=== PATIENT | female | born 1985 | race Caucasian/White ===

== ENCOUNTER 2023-11-27 21:04 | Emergency (ER) | payer BC ==
[2023-11-27 21:19] VITALS: BP 134/93; O2SAT 100
--- NOTE | 2023-11-27 21:33 | ED Physician Documentation ---
PD HPI ABD PAIN - Stated complaint Stated Complaint: ABD PX - Chief complaint Chief Complaint: Abd Pain - History obtained from History obtained from: Patient - Additional information Additional information: 38-year-old female with no significant past medical history presents with approximately 24 hours of centralized periumbilical abdominal pain. Associated nausea, patient denies vomiting or changes in bowel habits. Pain is constant, nothing seems to make it better or worse. Took Tylenol earlier this morning without change in symptoms. Denies previous history of abdominal surgeries. Since pain has persisted for over 24 hours she decided to present for evaluation. No known sick contacts, no new or strange foods. Review of Systems Constitutional: denies: Fever, Chills Cardiac: denies: Chest pain / pressure, Palpitations, Calf pain Respiratory: denies: Dyspnea, Cough, Wheezing GI: reports: Abdominal Pain, Nausea. denies: Vomiting, Constipation, Diarrhea PD PAST MEDICAL HISTORY - Past Medical History Past Medical History: No - Past Surgical History Past Surgical History: No - Present Medications Home Medications: Ambulatory Orders Medication Instructions Recorded Confirmed Dicyclomine [Bentyl] 1 - 2 tab PO QID PRN #30 cap 11/27/23 Ondansetron Odt [Zofran] 4 mg TL Q6H PRN #30 tablet 11/27/23 - Allergies Allergies/Adverse Reactions: Allergies Allergy/AdvReac Type Severity Reaction Status Date / Time No Known Drug Allergies Allergy Verified 11/27/23 21:07 - Social History Does the pt smoke?: No Smoking Status: Never smoker Does the pt drink ETOH?: No Does the pt have substance abuse?: No - Immunizations Immunizations are current?: Yes - POLST Patient has POLST: No PD ED PE NORMAL - Vitals Vital signs reviewed: Yes - General General: Alert and oriented X 3, No acute distress, Well developed/nourished - Respiratory Respiratory: No respiratory distress - Abdomen Abdomen: Soft, Non distended, No organomegaly, Other (generalized periumbilical abdominal tenderness to deep palpation without rebound or guarding) - Derm Derm: Normal color, Warm and dry, No rash - Neuro Neuro: Alert and oriented X 3, 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, No motor deficit, Normal speech - Psych Psych: Normal mood, Normal affect Results - Vitals Vitals: Vital Signs - 24 hr 11/27/23 11/27/23 21:07 23:07 Temperature 36.5 C 36.5 C Heart Rate 88 88 Respiratory 16 16 Rate Blood Pressure 134/93 H 134/93 H O2 Saturation 100 100 Oxygen O2 Source Room air - Labs Labs: Laboratory Tests 11/27/23 11/27/23 11/27/23 21:39 21:39 22:20 WBC 7.4 RBC 4.42 Hgb 13.7 Hct 40.0 MCV 90.5 MCH 31.0 MCHC 34.3 RDW 11.8 L Plt Count 278 MPV 11.8 H Neut # (Auto) 5.8 Lymph # (Auto) 1.2 L [place] # (Auto) 0.3 Eos # (Auto) 0.0 Baso # (Auto) 0.1 Absolute Nucleated RBC 0.00 Nucleated RBC % 0.0 Sodium 137 Potassium 3.9 Chloride 104 Carbon Dioxide 25 Anion Gap 8.0 BUN 11 Creatinine 0.5 L Estimated GFR (MDRD) 138 Glucose 123 H Calcium 10.0 Total Bilirubin 0.8 AST 11 ALT 9 L Alkaline Phosphatase 35 L Total Protein 7.4 Albumin 4.8 Globulin 2.6 Albumin/Globulin Ratio 1.8 Lipase < 10 L Urine Color YELLOW Urine Clarity CLEAR Urine pH 7.5 Ur Specific [place] 1.020 Urine Protein NEGATIVE Urine Glucose (UA) NEGATIVE Urine Ketones NEGATIVE Urine Occult Blood NEGATIVE Urine Nitrite NEGATIVE Urine Bilirubin NEGATIVE Urine Urobilinogen 0.2 (NORMAL) Ur Leukocyte Esterase NEGATIVE Ur Microscopic Review NOT INDICATED Urine Culture Comments NOT INDICATED Urine HCG, Qual NEGATIVE PD Medical Decision Making - ED course Complexity details: reviewed results, re-evaluated patient, considered differential, d/w patient ED course: Well-appearing patient with 24 hours of periumbilical abdominal pain. Abdomen is soft, pain located just around the umbilicus without rebound or guarding. Patient did drive herself to work today. Lab and nonsedating pain medications ordered. Laboratory work is reviewed, no significant abnormalities identified. No leukocytosis, normal liver enzymes, normal kidney function, normal electrolytes. Patient reports moderate improvement in pain with administration of Toradol. Patient counseled on laboratory work results, shared decision making between myself and patient at bedside. I offered abdominal imaging if patient was concern for underlying appendicitis or other possible surgical abnormality. Patient stated that she would like to defer imaging at this time. Recommended 24-hour return visit to the emergency department if she is still experiencing pains. Nausea medication, antispasmodic medications sent to pharmacy of choice. Departure - Departure Disposition: 01 Home, Self Care Clinical Impression: Abdominal pain Condition: Stable Instructions: ED Abdominal Pain Female Non-Specific Abdominal Pain Prescriptions: Dicyclomine [Bentyl] 1 - 2 tab PO QID PRN #30 cap PRN Reason: Abdominal Pain Ondansetron Odt [Zofran] 4 mg TL Q6H PRN #30 tablet PRN Reason: Nausea / Vomiting Comments: Your laboratory work here today is reassuring. You do not have an elevation in your white blood cell count, your liver enzymes are normal, and your kidney function is within normal limits. I am uncertain of the cause of your abdominal pain at this time based on laboratory work. I do recommend that if you are continuing to have abdominal pains by this time tomorrow you should come back to the emergency department for repeat evaluation and possible CT imaging. In the meantime and antispasmodic medication and nausea medications have been sent to the [facility] in [place]. You may also take Tylenol and ibuprofen at home as needed for discomfort. Forms: PCP List Discharge Date/Time: 11/27/23 23:08
[2023-11-27 21:45] LABS: BASOPHILS # (AUTO) 0.1 10^3/uL (0.0-0.1); BASOPHILS % (AUTO) 0.7 %; EOSINOPHILS % (AUTO) 0.1 %; HGB - HEMOGLOBIN 13.7 g/dL (12.0-16.0); LYMPHOCYTES # (AUTO) 1.2 10^3/uL (1.5-3.5); LYMPHOCYTES % (AUTO) 16.5 %; MEAN CORPUSCULAR HGB CONC 34.3 g/dL (32.0-36.0); MEAN CORPUSCULAR VOLUME 90.5 fL (81.0-99.0); MEAN PLATELET VOLUME 11.8 fL (7.9-10.8); MONOCYTES # (AUTO) 0.3 10^3/uL (0.0-1.0); MONOCYTES % (AUTO) 4.5 %; NEUTROPHILS # (AUTO) 5.8 10^3/uL (1.5-6.6); NEUTROPHILS % (AUTO) 77.9 %; PLT - PLATELET COUNT 278 10^3/uL (130-450); RED BLOOD COUNT 4.42 10^6/uL (4.20-5.40); RED CELL DISTRIBUTION WIDTH 11.8 % (12.0-15.0); WHITE BLOOD COUNT 7.4 x10^3/uL (4.8-10.8)
[2023-11-27] MEDS: KETOROLAC 15 MG/ML VIAL IVP STA (21:51)
[2023-11-27] MEDS: SODIUM CHLORIDE 0.9% 1,000 ML IV STA (21:51)
[2023-11-27] MEDS: ONDANSETRON 4 MG/2 ML VIAL IVP STA (21:52)
[2023-11-27 22:02] LABS: ALBUMIN 4.8 g/dL (3.2-5.5); ALBUMIN/GLOBULIN RATIO 1.8 (1.0-2.2); ALKALINE PHOSPHATASE 35 IU/L (42-121); ALT ALANINE AMINOTRANSFERASE 9 IU/L (10-60); AST ASPARTATE AMINOTRANSFERASE 11 IU/L (10-42); BILIRUBIN,TOTAL 0.8 mg/dL (0.2-1.0); BUN - BLOOD UREA NITROGEN 11 mg/dL (6-20); CARBON DIOXIDE - CO2 25 mmol/L (21-32); CHLORIDE 104 mmol/L (101-111); CREATININE 0.5 mg/dL (0.6-1.3); GFR - MDRD 138 (>89); GLUCOSE 123 mg/dL (74-104); POTASSIUM 3.9 mmol/L (3.5-4.5); SODIUM 137 mmol/L (135-145); TOTAL PROTEIN 7.4 g/dL (6.4-8.9)
[2023-11-27 22:08] LABS: LIPASE < 10 U/L (11-82)
[2023-11-27 22:27] LABS: BILIRUBIN,URINE NEGATIVE (NEGATIVE); GLUCOSE, URINE (UA) NEGATIVE (NEGATIVE); KETONES,URINE (UA) NEGATIVE (NEGATIVE); LEUKOCYTE ESTERASE, URINE NEGATIVE (NEGATIVE); NITRITE,URINE NEGATIVE (NEGATIVE); OCCULT BLOOD,URINE NEGATIVE (NEGATIVE); PH,URINE 7.5 PH (5.0-7.5); PROTEIN,URINE NEGATIVE (NEGATIVE); UROBILINOGEN,URINE 0.2 (NORMAL) E.U./dL (NORMAL)
[2023-11-27 22:30] LABS: HCG UR QUAL NEGATIVE
[2023-11-27 22:32] LABS: CLARITY,URINE CLEAR (CLEAR)
[2023-11-27] MEDS: DICYCLOMINE 10 MG CAPSULE PO STA (22:40)
[2023-11-27] MEDS: ONDANSETRON ODT 4 MG Prepack 2 TL PRN (22:40)
== END 2023-11-27 23:08 | disposition home or self-care (01) ==
LOC: ED 21:04
DX: R10.33 Periumbilical pain (principal); R11.0 Nausea
CPT/HCPCS: 36415; 80053; 81003; 81025; 83690; 85025; 96374; 96375; 99283; A9270; 81001; 87086

== ENCOUNTER 2023-11-28 18:20 | Emergency (ER) | payer BC ==
--- NOTE | 2023-11-28 18:39 | ED Physician Documentation ---
PD HPI ABD PAIN - Stated complaint Stated Complaint: ABD PX - Chief complaint Chief Complaint: Abd Pain - History obtained from History obtained from: Patient - Additional information Additional information: This is an otherwise healthy 38-year-old woman with no history of abdominal surgeries who developed relatively sudden onset abdominal pain that was central nonmigratory 48 hours ago associated with nausea but no vomiting. No changes in bowel movements or urinary complaints. She was seen by my partner last night and had generally unremarkable blood testing and negative urinalysis and pregna ncy testing and was advised to 24-hour recheck for consideration for imaging if not better. She is not better. PD PAST MEDICAL HISTORY - Past Surgical History Past Surgical History: No - Present Medications Home Medications: Ambulatory Orders Medication Instructions Recorded Confirmed Dicyclomine [Bentyl] 1 - 2 tab PO QID PRN #30 cap 11/27/23 Ondansetron Odt [Zofran] 4 mg TL Q6H PRN #30 tablet 11/27/23 - Allergies Allergies/Adverse Reactions: Allergies Allergy/AdvReac Type Severity Reaction Status Date / Time No Known Drug Allergies Allergy Verified 11/28/23 18:28 - Social History Does the pt smoke?: No Smoking Status: Never smoker Does the pt drink ETOH?: No Does the pt have substance abuse?: No - Immunizations Immunizations are current?: Yes - POLST Patient has POLST: No PD ED PE NORMAL - Vitals Vital signs reviewed: Yes - General General: Alert and oriented X 3, No acute distress - Abdomen Abdomen: Other (Hyperactive bowel sounds, mild diffuse tenderness without surgical signs) - Neuro Neuro: Alert and oriented X 3 Results - Vitals Vitals: Vital Signs - 24 hr 11/28/23 18:29 Temperature 36.8 C Heart Rate 81 Respiratory 15 Rate Blood Pressure 121/82 H O2 Saturation 100 Oxygen O2 Source Room air PD Medical Decision Making - ED course ED course: 38-year-old woman presents with nonspecific abdominal pain. Relatively benign exam. She was seen last night with normal labs now returns as instructed for reevaluation without improvement in her symptoms. She was medicated here with Dilaudid and Toradol and care to overnight emergency physician at 7 PM pending diagnostic studies. Departure - Departure Clinical Impression: Abdominal pain Qualifiers: Abdominal location: generalized Qualified Code(s): R10.84 - Generalized abdominal pain Condition: Stable Forms: PCP List
[2023-11-28 18:55] LABS: BASOPHILS # (AUTO) 0.1 10^3/uL (0.0-0.1); BASOPHILS % (AUTO) 0.8 %; EOSINOPHILS # (AUTO) 0.1 10^3/uL (0.0-0.7); EOSINOPHILS % (AUTO) 0.6 %; HCT - HEMATOCRIT 39.4 % (37.0-47.0); HGB - HEMOGLOBIN 13.1 g/dL (12.0-16.0); LYMPHOCYTES # (AUTO) 2.1 10^3/uL (1.5-3.5); MEAN CORPUSCULAR HEMOGLOBIN 30.6 pg (27.0-31.0); MEAN CORPUSCULAR HGB CONC 33.2 g/dL (32.0-36.0); MEAN CORPUSCULAR VOLUME 92.1 fL (81.0-99.0); MEAN PLATELET VOLUME 12.1 fL (7.9-10.8); MONOCYTES # (AUTO) 0.6 10^3/uL (0.0-1.0); MONOCYTES % (AUTO) 6.9 %; NEUTROPHILS # (AUTO) 5.1 10^3/uL (1.5-6.6); NEUTROPHILS % (AUTO) 64.4 %; PLT - PLATELET COUNT 284 10^3/uL (130-450); RED BLOOD COUNT 4.28 10^6/uL (4.20-5.40); RED CELL DISTRIBUTION WIDTH 11.9 % (12.0-15.0); WHITE BLOOD COUNT 7.9 x10^3/uL (4.8-10.8)
[2023-11-28] MEDS: KETOROLAC 15 MG/ML VIAL IVP STA (19:00)
[2023-11-28] MEDS: HYDROmorphone 1 MG/ML CARPUJECT IVP STA (19:01)
[2023-11-28 19:04] LABS: ALBUMIN 4.9 g/dL (3.2-5.5); ALBUMIN/GLOBULIN RATIO 2.1 (1.0-2.2); BILIRUBIN,TOTAL 0.8 mg/dL (0.2-1.0); CALCIUM 9.8 mg/dL (8.5-10.3); CREATININE 0.6 mg/dL (0.6-1.3); POTASSIUM 3.4 mmol/L (3.5-4.5); TOTAL PROTEIN 7.2 g/dL (6.4-8.9)
[2023-11-28] MEDS ORDERED: iohexoL-300 100 ML VIAL ONE (19:16)
[2023-11-28] MEDS: iohexoL-300 100 ML VIAL IVP ONE (19:47)
--- NOTE | 2023-11-28 19:56 | CT Report ---
PROCEDURE: Abdomen/Pelvis W INDICATIONS: IV only, abd pain CONTRAST: 100 ML OMNI 300 TECHNIQUE: After the administration of intravenous contrast, a CT scan of the abdomen and pelvis was performed. Images were recorded and evaluated at appropriate window settings. Reformats: coronal and sagittal. F or radiation dose reduction, the following was used: automated exposure control, adjustment of mA and /or kV according to patient size. COMPARISON: None. FINDINGS: Image quality: Diagnostic. Lower chest: Unremarkable. Liver: No solid mass. Gallbladder: No radiopaque stones or wall thickening. Biliary tree: No intrahepatic or extrahepatic dilation, accounting for age. Spleen: No splenomegaly. Pancreas: No pancreatic ductal dilation. Adrenals: No adrenal nodule. Kidneys and ureters: No hydronephrosis. No renal cystic lesion which requires follow up. No solid mas s. Stomach, bowel and peritoneum: No gastric or small bowel dilation. No abnormal wall thickening. No pa thologic free fluid. Appendix is visualized in right lower quadrant and is within normal limits. No p eritoneal free air. Lymph nodes: No central or retroperitoneal adenopathy. Vessels: No infrarenal aortic aneurysm. Patent portal vein. PELVIS Reproductive organs: There is suggestion of a left ovarian cyst measures 2.4 x 1.9 cm in size series 2 image 117. Bladder: No abnormal wall thickening, accounting for underdistention. Pelvic lymph nodes: No pelvic adenopathy by size criteria. Small amount of free fluid is noted in low er pelvis. Bones: No aggressive osseous abnormality. Other: No significant ventral or inguinal hernia. IMPRESSION: 1. Normal appendix. No bowel obstruction. No abscess collection. No peritoneal free air. 2. Small amount of free fluid is seen in lower pelvis. Possible left ovarian cyst measures 2.4 x 1.9 cm in size. Pelvic ultrasound can be done for further evaluation of this region if clinically indicat ed. Reviewed by: Darrick Salazar MD on 11/28/2023 7:55 PM PDT Approved by: Darrick Salazar MD on 11/28/2023 7:55 PM PDT Station ID: [id number]
--- NOTE | 2023-11-28 20:36 | ED Physician Documentation ---
ED Addendum - Addendum Addendum: 11/28/23 20:35 Care of patient signed out to me by Dr. Gore at 1900. Patient reassessed. Laboratory work is unchanged compared to yesterday, no new leukocytosis, no new change in liver enzymes or kidney function. CT of the abdomen and pelvis reviewed, no acute findings to explain patient's symptoms. Patient was reassessed, resting comfortably in bed, pain controlled with medications. Lab and imaging results discussed with patient and her significant other at bedside. Plan to send patient home with pain medications. She was counseled to continue to take Zofran and the Bentyl that were prescribed last night for symptoms. ED return precautions discussed.
[2023-11-28] MEDS: oxyCODONE/ACET 5/325 Prepack 4 PO STA (20:50)
[2023-11-28 21:00] VITALS: BP 116/73; O2SAT 99
== END 2023-11-28 21:10 | disposition home or self-care (01) ==
LOC: ED 18:20
DX: R10.84 Generalized abdominal pain (principal)
CPT/HCPCS: 36415; 74177; 80053; 85025; 96374; 96375; 99284; J1170; Q9967